=== PATIENT | female | born 1935 ===

== ENCOUNTER 2018-06-18 01:13 | Emergency (ER) | payer OTHER ==
[~2018-06-18] VITALS: Ht 165.1 cm; Wt 70.3 kg
--- NOTE | ~2018-06-18 | EKG ---
[place], [place] ELECTROCARDIOGRAM REPORT NAME: RUDY RUST UNIT #: [id number] ROOM: DOCTOR: EPIPHANY DRAFT REPORT BIRTHDATE: [birth year] [facility] Test Date: 2018-06-18 Test Time: 01:21:18 Pat Name: RUDY RUST Department: Room: Gender: F Clinical Quality Manager: Isaias Rivas : 1935 Requested By: ELLIS BATEMAN Order Number: [id number] Reading MD: Varun Don MD Measurements Intervals Charlo Rate: 55 P: 7 ND: 161 QRS: 29 QRSD: 86 T: 22 QT: 422 QTc: 404 Interpretive Statements Sinus rhythm Atrial premature complex Borderline T wave abnormalities Electronically Signed On 06-19-2018 19:28:35 PST by Varun Don MD CM:EKGRPT:ELECTROCARDIOGRAM REPORT [id number] ELLIS BURKS DRAFT REPORT ELLIS BATEMAN DO
[2018-06-18 01:41] LABS: BASO % 0.3 % (0.0-1.0); EOS # 0.1 10*3/uL (0.0-0.4); EOS % 1.2 % (1.0-4.0); HEMATOCRIT 43.6 % (37.0-47.0); HEMOGLOBIN 13.8 g/dl (12.0-16.0); LYMPH # 2.3 10*3/uL (1.3-4.4); MEAN CELL VOLUME 88.3 fl (81.0-99.0); MEAN CORPUSCULAR HGB 27.9 pg (27.0-31.0); MEAN CORPUSCULAR HGB CONC 31.7 g/dl (33.0-37.0); MEAN PLATELET VOLUME 9.3 fl (9.6-12.3); MONO # 0.9 10*3/uL (0.1-1.0); MONO % 9.5 % (3.0-9.0); NEUT # 6.5 10*3/uL (2.3-7.9); NEUT % 65.6 % (47.0-73.0); PLATELET COUNT AUTOMATED 243 10*3/uL (130-400); RED BLOOD COUNT 4.94 10*6/uL (4.10-5.10); RED CELL DISTRI WIDTH 14.9 % (0-14.5); WHITE BLOOD COUNT 9.9 10*3/uL (4.8-10.8)
[2018-06-18 01:59] LABS: ALBUMIN 3.6 gm/dl (3.1-4.5); ALKALINE PHOSPHATASE 67 U/L (45-117); BUN 12 mg/dl (7-24); CHLORIDE 100 mmol/L (98-107); CREATININE 1.03 mg/dL (0.55-1.02); POTASSIUM 3.5 mmol/L (3.5-5.1); SGOT/AST 20 IU/L (3-35); SGPT/ALT 18 U/L (12-78); SODIUM 136 mmol/L (136-145); TOTAL PROTEIN 8.1 gm/dL (6.4-8.2); TROPONIN I < 0.015 ng/ml (<0.045)
[2018-06-18 02:57] LABS: BILIRUBIN NEGATIVE (NEGATIVE); BLOOD TRACE-INTACT (NEGATIVE); CLARITY SL CLOUDY (CLEAR); COLOR YELLOW (YELLOW); GLUCOSE NEGATIVE (NEGATIVE); KETONE NEGATIVE (NEGATIVE); LEUKO ESTERASE TRACE (NEGATIVE); NITRITE NEGATIVE (NEGATIVE); PH 6.5 (5.0-9.0); UROBILINOGEN 0.2 E.U./dl (0.2-1.0)
[2018-06-18 03:03] LABS: BACTERIA 2+; EPITHELIAL CELLS 35-40
[2018-06-18] MEDS ORDERED: PRILOSEC20 M1 PO (03:57)
[2018-06-18] MEDS ORDERED: Lopressor25 MG PO (03:57)
[2018-06-18] MEDS ORDERED: CELEXA10 MG PO (03:58)
[2018-06-18] MEDS ORDERED: OXYBUTYNIN5 MG PO (03:58)
[2018-06-18] MEDS ORDERED: LISINOPRIL5 MG PO (03:59)
== END 2018-06-18 05:25 | disposition short-term general hospital (02) ==
LOC: ED 01:13
PROVIDERS: Emergency Medicine
DX: R55 Syncope and collapse (principal); R20.0 Anesthesia of skin; M54.2 Cervicalgia; F03.90 Unspecified dementia, unspecified severity, without behavioral disturbance, psychotic disturbance, mood disturbance, and anxiety; Z91.010 Allergy to peanuts; Z79.899 Other long term (current) drug therapy

== ENCOUNTER → 2019-02-03 | Outpatient (CLI) | payer MEDICARE ==
[~2019-02-03] MED LIST: CELEXA10 MG PO; LISINOPRIL5 MG PO; Lopressor25 MG PO; OXYBUTYNIN5 MG PO; PRILOSEC20 M1 PO
== END | disposition home or self-care (01) ==
LOC: RAD 11:32
DX: M47.814 Spondylosis without myelopathy or radiculopathy, thoracic region (principal); M47.817 Spondylosis without myelopathy or radiculopathy, lumbosacral region; M48.061 Spinal stenosis, lumbar region without neurogenic claudication; M41.86 Other forms of scoliosis, lumbar region; M81.0 Age-related osteoporosis without current pathological fracture